=== PATIENT | male | born 1975 | race Caucasian/White ===

== ENCOUNTER 2016-08-08 06:55 | Emergency (ER) | payer MEDICAID ==
[~2016-08-08] VITALS: Ht 188 cm; Wt 96.2 kg
[~2016-08-08 06:55] MED LIST: CARI350T21; ETOD400T; TRAM50TA2
[2016-08-08] MEDS ORDERED: MORPHINE SULF INJ 2 MG/ML SYRINGE 1ML IV ONE (09:15)
[2016-08-08] MEDS ORDERED: ASPirin 81 mg TAB PO ONE (09:15)
[2016-08-08] MEDS ORDERED: ONDANSETRON HCL 4 MG/2 ML VIAL IV ONE (09:15)
[2016-08-08] MEDS ORDERED: SODIUM CHLORIDE 0.9% 1,000 ML IVB ONE (09:15)
[2016-08-08 09:42] LABS: Basophils # (auto) 0 uL; Basophils % (auto) 0.3 % (0.0-2.0); Eosinophils # (auto) 0.1 uL; Eosinophils % (auto) 0.9 % (0.0-7.0); Hematocrit 39.8 % (41.0-53.0); Hemoglobin 13.4 g/dL (13.5-17.5); Lymphocytes # (auto) 1.6 uL; Lymphocytes % (auto) 16.3 % (10.0-50.0); Mean Corpuscular Hemoglobin 29.8 pg (28.0-32.0); Mean Corpuscular Hgb Conc. 33.6 g/dL (32.0-36.0); Mean Corpuscular Volume 88.6 fL (80.0-100.0); Mean Platelet Volume 7.1 fL (7.4-10.4); Monocytes # (auto) 0.5 uL; Neutrophils # (auto) 7.5 uL; Neutrophils % (auto) 77.5 % (37.0-80.0); Platelet Count (auto) 406 10^3/uL (140-450); White Blood Cell 9.7 10^3/uL (4.4-10.8)
[2016-08-08 09:59] VITALS: BP 140/83
[2016-08-08 10:14] LABS: B-Type Natriuretic Peptide 8.12 pg/mL (0-100)
[2016-08-08 10:42] LABS: Alkaline Phosphatase 62 U/L (45-117); Anion Gap 12 (5-15); Aspartate Aminotransferase 25 U/L (15-37); BUN/Creatinine Ratio 14.3; Bilirubin, Total 0.4 mg/dL (0.2-1.0); Blood Urea Nitrogen 11 mg/dL (7-18); Calcium 8.9 mg/dL (8.5-10.1); Carbon Dioxide 26 mmol/L (21-32); Chloride 106 mmol/L (98-107); GFR African American 142 mL/min; GFR Non-African American 117 mL/min; Glucose 115 mg/dL (74-106); Magnesium 2.3 mg/dL (1.6-2.6); Potassium 3.5 mmol/L (3.5-5.1); Sodium 144 mmol/L (136-145)
== END 2016-08-08 10:38 | disposition left against medical advice (07) ==
LOC: ER 07:25
DX: R07.9 Chest pain, unspecified (principal); I10 Essential (primary) hypertension; F17.210 Nicotine dependence, cigarettes, uncomplicated; F12.10 Cannabis abuse, uncomplicated; Z90.49 Acquired absence of other specified parts of digestive tract; Z53.29 Procedure and treatment not carried out because of patient's decision for other reasons
CPT/HCPCS: 36415; 71010; 80053; 80320; 83735; 83880; 84484; 85025; 93005; 94761; 99285; J7030

== ENCOUNTER 2017-03-18 11:37 | Emergency (ER) | payer MEDICAID ==
[~2017-03-18] VITALS: Ht 180.3 cm; Wt 79.4 kg
[~2017-03-18 11:37] MED LIST changes: +CARI-316; -CARI350T21
[2017-03-18 11:44] VITALS: BP 122/77
== END 2017-03-18 16:46 | disposition left against medical advice (07) ==
LOC: EDBD 11:37 → ER 11:37
DX: R07.9 Chest pain, unspecified (principal); Z53.21 Procedure and treatment not carried out due to patient leaving prior to being seen by health care provider
CPT/HCPCS: 93005

== ENCOUNTER 2017-07-29 08:35 | Emergency (ER) | payer MEDICAID ==
[~2017-07-29] VITALS: Ht 188 cm; Wt 80.3 kg
[2017-07-29 08:36] VITALS: BP 145/99
[2017-07-29] MEDS ORDERED: KETOROLAC TROMETH 60MG/2ML VIAL IM ONE (10:15)
== END 2017-07-29 10:26 | disposition home or self-care (01) ==
LOC: ER 08:35
DX: R10.2 Pelvic and perineal pain (principal); I10 Essential (primary) hypertension; F17.210 Nicotine dependence, cigarettes, uncomplicated; F12.10 Cannabis abuse, uncomplicated
CPT/HCPCS: 74176

== ENCOUNTER 2017-09-13 22:08 | Emergency (ER) | payer MEDICAID ==
[~2017-09-13] VITALS: Ht 188 cm; Wt 83.9 kg
[2017-09-13 22:49] LABS: Basophils # (auto) 0 uL; Basophils % (auto) 0.4 % (0.0-2.0); Eosinophils # (auto) 0.1 uL; Eosinophils % (auto) 1.2 % (0.0-7.0); Hematocrit 40.9 % (41.0-53.0); Hemoglobin 13.8 g/dL (13.5-17.5); Lymphocytes # (auto) 2.9 uL; Lymphocytes % (auto) 36.6 % (10.0-50.0); Mean Corpuscular Hemoglobin 31.4 pg (28.0-32.0); Mean Corpuscular Hgb Conc. 33.7 g/dL (32.0-36.0); Mean Corpuscular Volume 93.2 fL (80.0-100.0); Monocytes # (auto) 0.4 uL; Neutrophils # (auto) 4.6 uL; Neutrophils % (auto) 56.8 % (37.0-80.0); Nucleated Red Blood Cells % 0.2 %; Platelet Count (auto) 302 10^3/uL (140-450); Red Blood Cells 4.39 10^6/uL (4.5-5.90); Red Cell Distribution Width 14.9 % (11.8-14.3)
[2017-09-13 23:04] LABS: Alanine Aminotransferase 19 U/L (16-61); Albumin 3.6 g/dL (3.4-5.0); Anion Gap 13 (5-15); Aspartate Aminotransferase 20 U/L (15-37); BUN/Creatinine Ratio 24.7; Blood Urea Nitrogen 19 mg/dL (7-18); Calcium 8.1 mg/dL (8.5-10.1); Carbon Dioxide 23 mmol/L (21-32); Chloride 106 mmol/L (98-107); GFR African American 141 mL/min; GFR Non-African American 117 mL/min; Glucose 102 mg/dL (74-106); Magnesium 2.2 mg/dL (1.6-2.6); Potassium 3.4 mmol/L (3.5-5.1); Sodium 142 mmol/L (136-145)
[2017-09-13 23:09] LABS: Alkaline Phosphatase 46 U/L (45-117); Bilirubin, Total 0.3 mg/dL (0.2-1.0); Total Protein 7.8 g/dL (6.4-8.2)
[2017-09-14] MEDS ORDERED: SODIUM CHLORIDE 0.9% 1,000 ML IV ONE ×2 (00:45→07:30)
[2017-09-14] MEDS ORDERED: LORazepam 2MG/ML-1ML VIAL IV ONE (00:45)
[2017-09-14] MEDS ORDERED: KETOROLAC TROMETH 30 MG/ML 1ML VIAL IV ONE (07:30)
[2017-09-14] MEDS ORDERED: THIAMINE 100mg/ml INJ (200mg/2ml VIAL) IV ONE (07:45)
[2017-09-14] MEDS ORDERED: THIAMINE INJ 100 MG, MULTIPLE VITAMIN 10 ML, FOLIC ACID 1 MG, MAGNESIUM SULF SDV 50% 8 ... IV SCH ×5 (12:00)
[2017-09-14 12:41] VITALS: BP 133/65
[2017-09-14] MEDS ORDERED: IBUPROFEN 400 MG TAB PO ONE (13:00)
== END 2017-09-14 13:02 | disposition home or self-care (01) ==
LOC: EDBD 22:08 → ER 22:15
DX: S29.9XXA Unspecified injury of thorax, initial encounter (principal); S19.9XXA Unspecified injury of neck, initial encounter; S39.92XA Unspecified injury of lower back, initial encounter; G92 Toxic encephalopathy; F10.129 Alcohol abuse with intoxication, unspecified; F17.210 Nicotine dependence, cigarettes, uncomplicated; R06.02 Shortness of breath; I10 Essential (primary) hypertension; F12.10 Cannabis abuse, uncomplicated; Z59.0 Homelessness; Y04.0XXA Assault by unarmed brawl or fight, initial encounter; Y93.89 Activity, other specified; Y92.89 Other specified places as the place of occurrence of the external cause; Y99.8 Other external cause status
CPT/HCPCS: 36415; 70450; 70486; 71045; 71250; 72125; 74176; 80053; 80320; 83735; 83880; 84484; 85025; 93005; 96374; 96375; 99285; J1885; J2060; J3411; J7030

== ENCOUNTER 2018-07-22 22:12 | Inpatient (IN) | payer MEDICAID ==
[~2018-07-22] VITALS: Ht 188 cm; Wt 55.2 kg
[2018-07-23] MEDS ORDERED: SODIUM CHLORIDE 0.9% 1,000 ML IV ONE ×2 (07:36)
[2018-07-23] MEDS ORDERED: VANCOMYCIN 1GM/250ML 250 ML IV ONE (07:45)
[2018-07-23] MEDS ORDERED: PIPERACILLIN-TAZOB 3.375GM 100 ML IV ONE (07:45)
[2018-07-23 10:33] LABS: Basophils # (auto) 0 uL; Basophils % (auto) 0.6 % (0.0-2.0); Eosinophils # (auto) 0.1 uL; Eosinophils % (auto) 2.4 % (0.0-7.0); Monocytes # (auto) 0.7 uL; Neutrophils # (auto) 3.6 uL; White Blood Cell 6.1 10^3/uL (4.4-10.8)
[2018-07-23 10:35] LABS: Lymphocytes # (auto) 1.7 uL; Lymphocytes % (auto) 27.1 % (10.0-50.0); Mean Corpuscular Hemoglobin 30.9 pg (28.0-32.0); Mean Corpuscular Hgb Conc. 34.4 g/dL (32.0-36.0); Mean Corpuscular Volume 89.8 fL (80.0-100.0); Monocytes % (auto) 10.7 % (0.0-12.0); Neutrophils % (auto) 59.2 % (37.0-80.0); Red Blood Cells 3.56 10^6/uL (4.5-5.90); Red Cell Distribution Width 13.6 % (11.8-14.3)
[2018-07-23 10:45] LABS: INR 0.99 (0.9-1.15); Prothrombin Time 10.6 sec (9.27-12.13)
[2018-07-23] MEDS ORDERED: LACTULOSE 20Gm/30ML SOLN PO PRN (11:45)
[2018-07-23] MEDS ORDERED: MORPHINE SULF INJ 2 MG/ML SYRINGE 1ML IV PRN (11:45)
[2018-07-23] MEDS ORDERED: VANCOMYCIN PER PHARMACY 0 MG IV SCH (11:45)
[2018-07-23] MEDS ORDERED: PROMETHAZINE HCL 25 MG/ML 1ML IV PRN (11:45)
[2018-07-23] MEDS ORDERED: KETOROLAC TROMETH 30 MG/ML 1ML VIAL IV PRN (11:45)
[2018-07-23] MEDS ORDERED: NITROGLYCERIN 0.4 MG SL TAB SL PRN (11:45)
[2018-07-23] MEDS ORDERED: SODIUM CHLORIDE 0.9% 1,000 ML IV SCH (11:45)
[2018-07-23] MEDS ORDERED: ACETAMINOPHEN 500 MG TAB PO PRN (11:45)
[2018-07-23 11:50] LABS: Calcium 8.2 mg/dL (8.5-10.1); Chloride 107 mmol/L (98-107); Potassium 3.8 mmol/L (3.5-5.1); Sodium 136 mmol/L (136-145)
[2018-07-23 11:53] LABS: Alanine Aminotransferase 26 U/L (16-61)
[2018-07-23] MEDS ORDERED: PANTOPRAZOLE 40 MG TAB PO ONE (12:00)
[2018-07-23] MEDS ORDERED: ENOXAPARIN SOD 40 MG/0.4 ML SYRINGE SC ONE (12:00)
[2018-07-23 12:02] LABS: Anion Gap 6 (5-15); Blood Urea Nitrogen 13 mg/dL (7-18); Carbon Dioxide 23 mmol/L (21-32); Glucose 109 mg/dL (74-106)
[2018-07-23 12:30] LABS: Alkaline Phosphatase 54 U/L (45-117); BUN/Creatinine Ratio 17.8; Bilirubin, Total 0.3 mg/dL (0.2-1.0); GFR African American 149 mL/min; GFR Non-African American 123 mL/min
[2018-07-23] MEDS: PIPERACILLIN-TAZOB 3.375GM 100 ML IV SCH ×4 (12:35→23:24)
[2018-07-23] MEDS: LORazepam 0.5 MG TAB PO PRN (12:37)
[2018-07-23 12:43] LABS: Platelet Count (auto) 522 10^3/uL (140-450)
[2018-07-23 13:01] LABS: Aspartate Aminotransferase 19 U/L (15-37); Total Protein 6.6 g/dL (6.4-8.2)
[2018-07-23] MEDS: SODIUM CHLORIDE 0.9% 1,000 ML IV SCH ×2 (14:16→23:24)
[2018-07-23] MEDS: VANCOMYCIN 1,500 MG in D5W 5% 250 ML IV SCH (15:00)
[2018-07-23] MEDS: HYDROcodone-ACET 5/325MG TAB PO PRN (16:30)
[2018-07-23] MEDS ORDERED: CLIN1CAP3 PO (21:46)
[2018-07-23] MEDS ORDERED: CEPH250C PO (21:46)
[2018-07-23] MEDS ORDERED: HYDR-4683 PO (21:46)
--- NOTE | 2018-07-23 22:00 | NUR ---
Telemetry admit from [facility]AB[facility] SANCHEZ admitted to Telemetry unit. Patient oriented to ADRIANA ORNELAS RN primary RN, unit, room, bed, and unit policies regarding patient care and visiting hours. Patient now on continuous telemetry monitoring, tele box # 10 and telemetry reading on arrival to unit is SR. Patient weighed by bedscale and encouraged to call if they need something. All questions and concerns addressed, patient verbalized understanding.
[2018-07-23 22:15] VITALS: BP 116/76
[2018-07-23 22:56] VITALS: BP 116/76
[2018-07-23] MEDS: TEMAZEPAM 15 MG CAP PO PRN (23:24)
[2018-07-23 23:49] LABS: Urine Bacteria NONE SEEN /hpf (None Seen); Urine Blood Negative /uL (Negative); Urine Specific Gravity 1.007 (1.001-1.035); Urine WBC <1 /hpf (0 - 3)
[2018-07-24] MEDS ORDERED: DIPH25CA66 PO (00:38)
[2018-07-24] MEDS ORDERED: PERCOT PO (00:38)
[2018-07-24] MEDS ORDERED: DIAZ-104 PO (00:38)
[2018-07-24] MEDS ORDERED: SUCR1SUS10 PO (00:38)
[2018-07-24] MEDS ORDERED: MORP60TA25 PO (00:38)
[2018-07-24] MEDS: HYDROcodone-ACET 5/325MG TAB PO PRN ×3 (01:05→18:14)
[2018-07-24] MEDS: VANCOMYCIN 1,500 MG in D5W 5% 250 ML IV SCH ×2 (02:26→15:11)
[2018-07-24] MEDS: traMADol HCL 50 MG TAB PO PRN (04:32)
[2018-07-24] MEDS: LORazepam 0.5 MG TAB PO PRN ×2 (04:38→20:43)
[2018-07-24 04:56] VITALS: BP 100/53
[2018-07-24] MEDS: PIPERACILLIN-TAZOB 3.375GM 100 ML IV SCH ×4 (05:31→23:18)
[2018-07-24 05:52] LABS: Basophils # (auto) 0 uL; Eosinophils # (auto) 0.2 uL; Hematocrit 32.1 % (41.0-53.0); Lymphocytes # (auto) 2.5 uL; Mean Corpuscular Hgb Conc. 34.1 g/dL (32.0-36.0); Monocytes # (auto) 0.6 uL; Red Blood Cells 3.53 10^6/uL (4.5-5.90)
[2018-07-24 05:54] LABS: Basophils % (auto) 0.6 % (0.0-2.0); Eosinophils % (auto) 2.9 % (0.0-7.0); Mean Corpuscular Volume 90.8 fL (80.0-100.0); Monocytes % (auto) 9.8 % (0.0-12.0); Neutrophils # (auto) 2.8 uL; Neutrophils % (auto) 45.7 % (37.0-80.0); Nucleated Red Blood Cells % 0.2 %; Platelet Count (auto) 504 10^3/uL (140-450); Red Cell Distribution Width 13.7 % (11.8-14.3)
[2018-07-24 05:58] LABS: Potassium 3.6 mmol/L (3.5-5.1)
[2018-07-24 06:07] LABS: Albumin 3.2 g/dL (3.4-5.0); BUN/Creatinine Ratio 16.7; Bilirubin, Total 0.3 mg/dL (0.2-1.0); Calcium 8.1 mg/dL (8.5-10.1); Total Protein 6.7 g/dL (6.4-8.2)
--- NOTE | 2018-07-24 06:30 | NUR ---
Patient's Own Medication Dropped off POM to pharmacy. POM band placed on patient, POM sticker placed on chart.
[2018-07-24 09:00] VITALS: BP_SYST 111; BP_SYST 114; BP_DIAS 61; BP_DIAS 67
[2018-07-24] MEDS: PANTOPRAZOLE 40 MG TAB PO SCH (09:53)
[2018-07-24] MEDS: ENOXAPARIN SOD 40 MG/0.4 ML SYRINGE SC SCH (09:53)
--- NOTE | 2018-07-24 16:00 | NUR ---
Received call from Dr. Avery for surgical consult. He was updated on patient's condition. Dr. Avery states he will come see patient and to make the patient NPO Thursday.
[2018-07-24 16:55] VITALS: BP 114/65
[2018-07-24] MEDS: SODIUM CHLORIDE 0.9% 1,000 ML IV SCH ×2 (18:22→20:02)
--- NOTE | 2018-07-24 19:05 | NUR ---
Opening Shift Note Assumed care of patient from day shift RN Beverly. Pt is awake and alert and oriented x4. No S/S of distress. Safety maintained with bed rails upx2, locked and in lowest position with call li within reach. Instructed on POC and to call for assist PRN, will continue to monitor for changes Q1hr and PRN.
[2018-07-24] MEDS: TEMAZEPAM 15 MG CAP PO PRN ×2 (20:43→22:38)
[2018-07-24 21:52] VITALS: BP 97/63
[2018-07-25] MEDS: HYDROcodone-ACET 5/325MG TAB PO PRN ×4 (00:13→18:45)
[2018-07-25] MEDS: VANCOMYCIN 1,500 MG in D5W 5% 250 ML IV SCH ×2 (03:30→16:40)
[2018-07-25 03:33] LABS: Albumin 2.9 g/dL (3.4-5.0); BUN/Creatinine Ratio 13.2; Calcium 8.5 mg/dL (8.5-10.1); Potassium 3.5 mmol/L (3.5-5.1)
[2018-07-25 03:35] LABS: Bilirubin, Total 0.2 mg/dL (0.2-1.0); Total Protein 6.3 g/dL (6.4-8.2)
[2018-07-25 05:43] VITALS: BP 127/92
[2018-07-25] MEDS: PIPERACILLIN-TAZOB 3.375GM 100 ML IV SCH ×3 (05:51→18:45)
[2018-07-25] MEDS: SODIUM CHLORIDE 0.9% 1,000 ML IV SCH ×2 (06:07→18:48)
[2018-07-25] MEDS: LORazepam 0.5 MG TAB PO PRN ×2 (06:15→22:02)
--- NOTE | 2018-07-25 07:06 | NUR ---
PHARMACY PHARMACY CALLED REGARDING VANCOMYCIN ADMINISTRATION. VANCO 1ST DOSE WAS NOT ADMINISTERED IN THE ER ON 07/23. PHARMACY STATES TO GIVE NEXT DOSE AT 1500, WILL REDRAW VANCO TROUGH.
--- NOTE | 2018-07-25 07:33 | NUR ---
Endorsed care to day shift NAIMA Paul. Pt resting in bed, no s/s distress.
--- NOTE | 2018-07-25 08:40 | NUR ---
Received call from patient's mother Cande Richardson: [phone].
[2018-07-25 09:53] VITALS: BP 130/72
[2018-07-25] MEDS: PANTOPRAZOLE 40 MG TAB PO SCH (10:03)
[2018-07-25] MEDS: ENOXAPARIN SOD 40 MG/0.4 ML SYRINGE SC SCH (10:03)
[2018-07-25 13:00] VITALS: BP 126/79
[2018-07-25 17:30] VITALS: BP 116/69
--- NOTE | 2018-07-25 19:30 | NUR ---
received pt from day rn poc reviewed
[2018-07-25 22:04] VITALS: BP 112/68
[2018-07-25] MEDS: TEMAZEPAM 15 MG CAP PO PRN ×2 (23:16→23:20)
[2018-07-26] MEDS: HYDROcodone-ACET 5/325MG TAB PO PRN ×4 (00:36→13:43)
[2018-07-26] MEDS: PIPERACILLIN-TAZOB 3.375GM 100 ML IV SCH ×3 (00:36→11:17)
[2018-07-26] MEDS: VANCOMYCIN 1,500 MG in D5W 5% 250 ML IV SCH ×2 (03:10→15:00)
[2018-07-26] MEDS: SODIUM CHLORIDE 0.9% 1,000 ML IV SCH ×2 (03:11→11:18)
--- NOTE | 2018-07-26 03:25 | NUR ---
tele dc'd per nursing protocol
[2018-07-26 05:30] VITALS: BP 126/70
[2018-07-26 06:41] LABS: Albumin 3.2 g/dL (3.4-5.0); Calcium 8.7 mg/dL (8.5-10.1); Potassium 3.8 mmol/L (3.5-5.1)
[2018-07-26 06:47] LABS: BUN/Creatinine Ratio 18.8; Bilirubin, Total 0.2 mg/dL (0.2-1.0); Total Protein 6.7 g/dL (6.4-8.2)
--- NOTE | 2018-07-26 07:06 | NUR ---
report given to am nurse poc reviewed
[2018-07-26] MEDS: ENOXAPARIN SOD 40 MG/0.4 ML SYRINGE SC SCH (08:49)
[2018-07-26] MEDS: LORazepam 0.5 MG TAB PO PRN ×2 (08:49→16:53)
[2018-07-26] MEDS: PANTOPRAZOLE 40 MG TAB PO SCH (08:49)
[2018-07-26] MEDS: traMADol HCL 50 MG TAB PO PRN ×2 (08:50→16:54)
[2018-07-26 09:40] VITALS: BP 115/68
--- NOTE | 2018-07-26 12:39 | NUR ---
NUTRITION ASSESSMENT NOTES Please refer to link notes of nutrition screen form filed under the intervention section of the plan of care for further details. Est. Needs based on IBW (86 kg): 2150 kcal to 2600 kcal (25-30 kcal/kgIBW), 86 gms to 103 gms pro (1.0-1.2 gms/kgIBW). Will continue to monitor pertinent labs and reassess nutrient need prn Thank you. Addendum: 07/26/18 at [address] Amended: Links added.
[2018-07-26 13:00] VITALS: BP 124/79
--- NOTE | 2018-07-26 15:49 | NUR ---
assessment Patient is a 43 year old male who is alert and oriented. Prior to admission patient informed me he was homeless. Patient informed me he needs a coat on discharge. Naheed Olmstead has provided patient with a coat. I have provided patient with a homeless resource packet. I Have offered patient the homeless skilled nursing and he refused stating he will find his own place to live. Patient has been provided with a taxi voucher to his friends house in [place]. Patient has signed the homeless waiver and it has been placed in his chart. Patient verbalized understanding and agreed to discharge plan to a skilled nursing of his choosing. Addendum: 07/26/18 at 1609 by Naheed DYER Amended: Links added.
[2018-07-26 17:14] VITALS: BP 130/78
--- NOTE | 2018-07-26 18:03 | NUR ---
Discharge instructions given as ordered. Encourage to follow up with PMD as instructed. All questions and concerns addressed. Patient verbalized understanding. Medication reconciliation form completed and copy given to patient. Home medications held in Pharmacy returned to patient, PRESCRIPTIONS AND RESOURCES FOR THE [facility] GIVEN TO PATIENT. IV removed with catheter intact, pressure dressing applied.
== END 2018-07-26 18:16 | disposition home or self-care (01) | DRG 383 ==
LOC: EDBD 22:12 → ER 22:12 → TELE 07-23 11:45 → TELE-WESTW 07-23 22:00 → WEST WING 07-26 03:08
PROVIDERS: ADMIT Internal Medicine; ATTEND Internal Medicine
DX: L03.032 Cellulitis of left toe (principal); I11.0 Hypertensive heart disease with heart failure; L02.416 Cutaneous abscess of left lower limb; F17.210 Nicotine dependence, cigarettes, uncomplicated; F19.90 Other psychoactive substance use, unspecified, uncomplicated; F32.9 Major depressive disorder, single episode, unspecified; F41.9 Anxiety disorder, unspecified; S43.004A Unspecified dislocation of right shoulder joint, initial encounter; L03.317 Cellulitis of buttock; L03.031 Cellulitis of right toe; Y04.0XXA Assault by unarmed brawl or fight, initial encounter; Z59.0 Homelessness; Z90.49 Acquired absence of other specified parts of digestive tract; Z88.5 Allergy status to narcotic agent; Z82.49 Family history of ischemic heart disease and other diseases of the circulatory system; Y93.89 Activity, other specified; Y92.89 Other specified places as the place of occurrence of the external cause; Y99.8 Other external cause status
CPT/HCPCS: 36415; 71045; 73630; 73700; 80053; 80202; 81001; 83605; 84484; 85025; 85610; 85652; 85730; 87040; 87081; 96365; 96366; 96368; 96372; 96375; G0378; J1885; J2543; J7060

== ENCOUNTER 2018-08-02 13:30 | Emergency (ER) | payer MEDICAID ==
[~2018-08-02] VITALS: Ht 193 cm; Wt 83.0 kg
[~2018-08-02 13:30] MED LIST changes: -CARI-316; +DIAZ-104 PO; +DIPH25CA66 PO; -ETOD400T; +HYDR-4683 PO; +SUCR1SUS10 PO; -TRAM50TA2
[2018-08-02 13:45] VITALS: BP 125/77
[2018-08-02] MEDS ORDERED: cefTRIAXone SOD 1,000 MG VL IM ONE (19:15)
[2018-08-02] MEDS ORDERED: KETOROLAC TROMETH 60MG/2ML VIAL IM ONE (19:15)
[2018-08-02] MEDS ORDERED: methylPREDNISolone SOD SUCC 125 MG/2 ML VL IM ONE (19:15)
== END 2018-08-02 20:44 | disposition home or self-care (01) ==
LOC: ER 13:34
DX: L03.032 Cellulitis of left toe (principal); L03.031 Cellulitis of right toe; F17.210 Nicotine dependence, cigarettes, uncomplicated; F12.90 Cannabis use, unspecified, uncomplicated; Z79.899 Other long term (current) drug therapy; Z90.49 Acquired absence of other specified parts of digestive tract
CPT/HCPCS: 96372; 99283; J0696; J1885; J2930

== ENCOUNTER 2018-08-16 22:20 | Inpatient (IN) | payer MEDICAID | END 2018-08-20 11:35 | disposition home or self-care (01) | LOC: OVERFLOW 08-17 07:10 → WEST WING 08-17 17:16 → ER 22:20 | PROC: 0DB78ZX Excision of Stomach, Pylorus, Via Natural or Artificial Opening Endoscopic, Diagnostic (ICD-10-PCS; principal; 2018-08-17 14:45) | DX: K29.01 Acute gastritis with bleeding (principal); E83.51 Hypocalcemia; D64.9 Anemia, unspecified; F19.10 Other psychoactive substance abuse, uncomplicated; K20.9 Esophagitis, unspecified; F10.20 Alcohol dependence, uncomplicated ==

== ENCOUNTER 2018-08-21 17:27 | Emergency (ER) | payer MEDICAID ==
[~2018-08-21] VITALS: Ht 188 cm; Wt 82.1 kg
[~2018-08-21 17:27] MED LIST changes: -DIAZ-104 PO; -DIPH25CA66 PO; -HYDR-4683 PO; +LORA-655 PO; -SUCR1SUS10 PO; +ZOLP10TA PO
[2018-08-21 18:28] LABS: Basophils # (auto) 0 uL; Basophils % (auto) 0.6 % (0.0-2.0); Eosinophils # (auto) 0.1 uL; Eosinophils % (auto) 1.5 % (0.0-7.0); Hematocrit 36.4 % (41.0-53.0); Hemoglobin 12.2 g/dL (13.5-17.5); Lymphocytes # (auto) 2.1 uL; Lymphocytes % (auto) 35.3 % (10.0-50.0); Mean Corpuscular Hemoglobin 30.5 pg (28.0-32.0); Mean Corpuscular Hgb Conc. 33.6 g/dL (32.0-36.0); Mean Corpuscular Volume 90.7 fL (80.0-100.0); Monocytes # (auto) 0.4 uL; Monocytes % (auto) 7.4 % (0.0-12.0); Neutrophils # (auto) 3.3 uL; Neutrophils % (auto) 55.2 % (37.0-80.0); Nucleated Red Blood Cells % 0.1 %; Platelet Count (auto) 200 10^3/uL (140-450); Red Blood Cells 4.01 10^6/uL (4.5-5.90); Red Cell Distribution Width 15.4 % (11.8-14.3); White Blood Cell 5.9 10^3/uL (4.4-10.8)
[2018-08-21 18:37] LABS: Alanine Aminotransferase 35 U/L (16-61); Albumin 3.8 g/dL (3.4-5.0); Anion Gap 12 (5-15); Aspartate Aminotransferase 29 U/L (15-37); Blood Urea Nitrogen 20 mg/dL (7-18); Calcium 8.8 mg/dL (8.5-10.1); Carbon Dioxide 21 mmol/L (21-32); Chloride 109 mmol/L (98-107); GFR African American 134 mL/min; GFR Non-African American 111 mL/min; Glucose 97 mg/dL (74-106); Magnesium 2.4 mg/dL (1.6-2.6); Potassium 3.9 mmol/L (3.5-5.1); Sodium 142 mmol/L (136-145)
[2018-08-21 18:43] LABS: Alkaline Phosphatase 64 U/L (45-117); Bilirubin, Total 0.3 mg/dL (0.2-1.0); Total Protein 7.6 g/dL (6.4-8.2)
[2018-08-21] MEDS ORDERED: ASPirin 325 MG TAB PO ONE (19:30)
[2018-08-21] MEDS ORDERED: SODIUM CHLORIDE 0.9% 3,000 ML IV ONE (19:30)
[2018-08-21 22:15] LABS: Urine WBC None Seen /hpf (0 - 3)
[2018-08-21 22:30] LABS: Urine Bacteria NONE SEEN /hpf (None Seen); Urine Blood Negative /uL (Negative); Urine Specific Gravity 1.018 (1.001-1.035)
[2018-08-21 22:45] LABS: Amphetamine Screen, Urine NEGATIVE (NEGATIVE); Barbiturate Scree,Urine NEGATIVE (NEGATIVE); Benzodiazephine Screen, Urine NEGATIVE (NEGATIVE); Cannabinoid Screen, Urine POSITIVE (NEGATIVE); Cocaine Screen, Urine NEGATIVE (NEGATIVE); Opiate Scree,Urine NEGATIVE (NEGATIVE); Phencyclidine Screen, Urine NEGATIVE (NEGATIVE)
[2018-08-21 23:33] VITALS: BP 97/60
== END 2018-08-21 23:37 | disposition home or self-care (01) ==
LOC: EDBD 17:27 → ER 17:28
DX: R07.89 Other chest pain (principal); F10.920 Alcohol use, unspecified with intoxication, uncomplicated; F12.10 Cannabis abuse, uncomplicated; F15.10 Other stimulant abuse, uncomplicated; I25.2 Old myocardial infarction; Z90.89 Acquired absence of other organs; Y90.0 Blood alcohol level of less than 20 mg/100 ml
CPT/HCPCS: 36415; 71045; 80053; 80307; 80320; 81001; 83735; 84484; 85025; 93005; 99284; J7030

== ENCOUNTER 2018-10-11 11:23 | Emergency (ER) | payer MEDICAID ==
[~2018-10-11] VITALS: Ht 188 cm; Wt 82.6 kg
[2018-10-11] MEDS ORDERED: ASPirin 81 mg TAB PO ONE (11:45)
[2018-10-11 11:47] VITALS: BP 122/84
[2018-10-11] MEDS ORDERED: KETOROLAC TROMETH 60MG/2ML VIAL IM ONE (12:15)
== END 2018-10-11 12:33 | disposition home or self-care (01) ==
LOC: ER 11:25
DX: R07.89 Other chest pain (principal); F12.10 Cannabis abuse, uncomplicated; F15.10 Other stimulant abuse, uncomplicated; F17.210 Nicotine dependence, cigarettes, uncomplicated; I10 Essential (primary) hypertension; I25.2 Old myocardial infarction; F19.10 Other psychoactive substance abuse, uncomplicated; Z76.5 Malingerer [conscious simulation]
CPT/HCPCS: 71046; 93005; 94761; 96372; 99283; J1885